=== PATIENT | male | born 1985 | race Caucasian/White ===

== ENCOUNTER 2021-06-01 08:58 | Emergency (ER) | payer BC ==
[2021-06-01] MEDS ORDERED: METHYLPREDNISOLONE 125 MG INJ ONE (09:40)
[2021-06-01] MEDS ORDERED: KETOROLAC 30 MG/ML INJ ONE (09:40)
--- NOTE | 2021-06-01 10:39 | RAD REPORT ---
EXAM DESCRIPTION: RAD - Chest Pa And Lat (2 Views) - 06/01/2021 10:10 am CLINICAL HISTORY: Chest pain;SOB COMPARISON: No comparisons FINDINGS: Lines: None. Lungs: No evidence of edema or pneumonia. Pleural: No significant pleural effusions or pneumothorax. Cardiac: The heart size is within normal limits. Bones: No acute fractures. Other: IMPRESSION: No acute cardiopulmonary disease.
--- NOTE | 2021-06-01 11:27 | EDPHYS ---
Physician Documentation [facility] Name: Og Rincon Age: 35 yrs Sex: Male : 1985 Arrival Date: 06/01/2021 Time: 09:03 Bed 14 Private MD: ED Physician Scooby Levine HPI: 06/01 09:57 This 35 yrs old Male presents to ER via Ambulatory with complaints of kdr Breathing Difficulty. 09:57 The patient or guardian reports chest pain that is located primarily in the anterior kdr chest wall, left, Patient is having pain to the left lower costal margin inferior to the nipple at the lower edge of the rib cage. The pain does not radiate. Associated signs and symptoms: Pertinent positives: shortness of breath, Pertinent negatives: headache, lower extremity pain, lower extremity swelling, lightheadedness, nausea, near syncope, palpitations. The chest pain is described as sharp, stabbing. Duration: The patient or guardian reports multiple episodes, that are intermittent, that wax and wane, Associated with coughing and movement and deep breathing. Modifying factors: The symptoms are alleviated by nothing. the symptoms are aggravated by cough, deep breath, movement. Severity of pain: At its worst the pain was moderate incapacitating. The patient has not experienced similar symptoms in the past. The patient has not recently seen a physician. Historical: - Allergies: 09:26 No Known Allergies; ss - Home Meds: 09:26 None [Active]; ss - PMHx: 09:26 None; ss - PSHx: 09:26 None; ss - Immunization history:: Client reports having NOT received the Covid vaccine. - Social history:: Smoking status: Reported history of juuling and/or vaping. ROS: 09:57 Constitutional: Negative for fever, chills, and weight loss, Eyes: Negative for injury, kdr pain, redness, and discharge, Neck: Negative for injury, pain, and swelling, Respiratory: Negative for shortness of breath, cough, wheezing, and pleuritic chest pain, Abdomen/GI: Negative for abdominal pain, nausea, vomiting, diarrhea, and constipation, Back: Negative for injury and pain, : Negative for injury, bleeding, discharge, and swelling, MS/Extremity: Negative for injury and deformity, Skin: Negative for injury, rash, and discoloration, Neuro: Negative for headache, weakness, numbness, tingling, and seizure activity. Psych: Negative for depression, anxiety, suicide ideation, homicidal ideation, and hallucinations, Allergy/Immunology: Negative for hives, rash, and allergies, Endocrine: Negative for neck swelling, polydipsia, polyuria, polyphagia, and marked weight changes, Hematologic/Lymphatic: Negative for swollen nodes, abnormal bleeding, and unusual bruising. 09:57 Cardiovascular: Positive for chest pain, with cough, with movement, of the Left lower chest as described above. Exam: 10:00 Constitutional: This is a well developed, well nourished patient who is awake, alert, kdr and in mild distress. Head/Face: Normocephalic, atraumatic. Eyes: Pupils equal round and reactive to light, extra-ocular motions intact. Lids and lashes normal. Conjunctiva and sclera are non-icteric and not injected. Cornea within normal limits. Periorbital areas with no swelling, redness, or edema. Neck: Trachea midline, no thyromegaly or masses palpated, and no cervical lymphadenopathy. Supple, full range of motion without nuchal rigidity, or vertebral point tenderness. No Meningismus. Chest/axilla: Normal chest wall appearance and motion. Nontender with no deformity. No lesions are appreciated. Cardiovascular: Regular rate and rhythm with a normal S1 and S2. No gallops, murmurs, or rubs. Normal PMI, no JVD. No pulse deficits. Respiratory: Lungs have equal breath sounds bilaterally, clear to auscultation and percussion. No rales, rhonchi or wheezes noted. No increased work of breathing, no retractions or nasal flaring. Abdomen/GI: Soft, non-tender, with normal bowel sounds. No distension or tympany. No guarding or rebound. No evidence of tenderness throughout. Back: No spinal tenderness. No costovertebral tenderness. Full range of motion. Skin: Warm, dry with normal turgor. Normal color with no rashes, no lesions, and no evidence of cellulitis. MS/ Extremity: Pulses equal, no cyanosis. Neurovascular intact. Full, normal range of motion. Neuro: Awake and alert, GCS 15, oriented to person, place, time, and situation. Cranial nerves II-XII grossly intact. Motor strength 5/5 in all extremities. Sensory grossly intact. Cerebellar exam normal. Normal gait. Psych: Awake, alert, with orientation to person, place and time. Behavior, mood, and affect are within normal limits. 10:00 Chest/axilla: Inspection: normal, Palpation: tenderness, Very minor discomfort with compression at the site of discomfort. Vital Signs: 09:21 BP 122 / 79; Pulse 70; Resp 16; Temp 97.5(O); Pulse Ox 99% on R/A; Weight 47.63 kg; ss Height 6 ft. 3 in. (190.50 cm); Pain 9/10; 10:18 BP 110 / 70; Pulse 64; Resp 15; Pulse Ox 96% ; Pain 8/10; jl7 11:20 BP 106 / 69; Pulse 59; Resp 15; Pulse Ox 98% ; jl7 09:21 Body Mass Index 13.12 (47.63 kg, 190.50 cm) ss MDM: 10:00 Data reviewed: vital signs, nurses notes, radiologic studies. Counseling: I had a kdr detailed discussion with the patient and/or guardian regarding: the historical points, exam findings, and any diagnostic results supporting the discharge/admit diagnosis, radiology results, the need for outpatient follow up. 11:27 Patient medically screened. kdr 11:28 ED course: Patient was stable in the ED. Improved with the interventions given. He was kdr happy with the care provided and the plan for discharge and follow-up. 06/01 09:41 Order name: Chest Pa And Lat (2 Views) XRAY; Complete Time: 11:26 kdr 06/01 09:41 Order name: EKG - Nurse/Tech; Complete Time: 10:19 kdr Administered Medications: 09:48 Drug: Ketorolac 15 mg Route: IVP; Site: right antecubital; jl7 10:20 Follow up: Response: No adverse reaction; Pain is decreased jl7 09:50 Drug: SOLU-Medrol (methylPrednisoLONE) 125 mg Route: IVP; Site: right antecubital; jl7 10:56 Follow up: Response: No adverse reaction jl7 Disposition Summary: 06/01/21 11:27 Discharge Ordered Location: Home kdr Problem: new kdr Symptoms: have improved kdr Condition: Stable kdr Diagnosis - Chest pain on breathing kdr - Chest pain, unspecified kdr Followup: kdr - With: Private Physician - When: 2 - 3 days - Reason: If symptoms return, Further diagnostic work-up, Recheck today's complaints, Continuance of care, Re-evaluation by your physician Discharge Instructions: - Discharge Summary Sheet kdr - Costochondritis kdr - Chest Wall Pain, [id number] kdr - Nonspecific Chest Pain, Adult, [id number] kdr Forms: - Medication Reconciliation Form kdr - Thank You Letter kdr - Prescription Opioid Use kdr Prescriptions: - Ibuprofen 800 mg Oral Tablet - take 1 tablet by ORAL route every 8 hours As needed take with food; 15 tablet; kdr Refills: 0, Product Selection Permitted - Tramadol 50 mg Oral Tablet - take 1 tablet by ORAL route every 8 hours as needed; 12 tablet; Refills: 0, kdr Product Selection Permitted - Medrol (Paddy) 4 mg Oral Tablets, Dose Pack - take 1 tablet by ORAL route as directed - follow package instructions; 1 kdr packet; Refills: 0, Product Selection Permitted Signatures: Dispatcher [employer] Scooby Scott MD MD kdr Smirch, Shelby RN RN ss Teresa Lovett RN RN jl7
--- NOTE | 2021-06-01 11:27 | ER ---
Nurse's Notes [facility] Name: Og Rincon Age: 35 yrs Sex: Male : 1985 Arrival Date: 06/01/2021 Time: 09:03 Bed 14 Private MD: Diagnosis: Chest pain on breathing;Chest pain, unspecified Presentation: 06/01 09:21 Chief complaint: Patient states: pain just under L breast that began last night, but ss became much worse this morning. Pt reports a recent cough, but it has since improved. Denies fever. Pain is worse with deep breathing. Coronavirus screen: Client denies travel out of the [place] in the last 14 days. Ebola Screen: Patient denies exposure to infectious person. Patient denies travel to an Ebola-affected area in the 21 days before illness onset. Initial Sepsis Screen: Does the patient meet any 2 criteria? No. Patient's initial sepsis screen is negative. Does the patient have a suspected source of infection? No. Patient's initial sepsis screen is negative. Risk Assessment: Do you want to hurt yourself or someone else? Patient reports no desire to harm self or others. Onset of symptoms was May 31, 2021. 09:21 Method Of Arrival: Ambulatory ss 09:21 Acuity: DEMAR 3 ss Historical: - Allergies: 09:26 No Known Allergies; ss - Home Meds: 09:26 None [Active]; ss - PMHx: 09:26 None; ss - PSHx: 09:26 None; ss - Immunization history:: Client reports having NOT received the Covid vaccine. - Social history:: Smoking status: Reported history of juuling and/or vaping. Screenin:16 Abuse screen: Denies threats or abuse. Denies injuries from another. Nutritional jl7 screening: No deficits noted. Tuberculosis screening: No symptoms or risk factors identified. Fall Risk IV access (20 points). Total Joyner Fall Scale indicates No Risk (0-24 pts). Assessment: 09:30 General: Appears in no apparent distress. uncomfortable, Behavior is calm, cooperative, jl7 appropriate for age. Pain: Complains of pain in diaphragm Pain does not radiate. Pain currently is 8 out of 10 on a pain scale. Quality of pain is described as sharp, stabbing, Pain began suddenly, Is episodic. Neuro: Level of Consciousness is awake, alert, obeys commands, Oriented to person, place, time, situation. Cardiovascular: Patient's skin is warm and dry. Rhythm is regular. Respiratory: Reports pain with respiration Airway is patent Respiratory effort is even, unlabored, Respiratory pattern is regular, symmetrical, Breath sounds are clear. Derm: Skin is pink, warm \T\ dry. Vital Signs: 09:21 BP 122 / 79; Pulse 70; Resp 16; Temp 97.5(O); Pulse Ox 99% on R/A; Weight 47.63 kg; ss Height 6 ft. 3 in. (190.50 cm); Pain 9/10; 10:18 BP 110 / 70; Pulse 64; Resp 15; Pulse Ox 96% ; Pain 8/10; jl7 11:20 BP 106 / 69; Pulse 59; Resp 15; Pulse Ox 98% ; jl7 09:21 Body Mass Index 13.12 (47.63 kg, 190.50 cm) ED Course: 09:03 Patient arrived in ED. mr 09:15 Scooby Levine MD is Attending Physician. kdr 09:22 Teresa Lvoett, ERIC is Primary Nurse. jl7 09:26 Triage completed. ss 09:26 Arm band placed on left wrist. ss 09:30 Patient has correct armband on for positive identification. Placed in gown. Bed in low jl7 position. Call light in reach. Side rails up X 1. quality assurance monitor body on. Pulse ox on. NIBP on. 09:30 EKG done, by ED staff, reviewed by Scooby Levine MD. Inserted saline lock: 20 gauge in jl7 right antecubital area, using aseptic technique. ,using aseptic technique. Inserted by Yohana Student Nurse Rope Silica Machine Operator. 10:11 Chest Pa And Lat (2 Views) XRAY In Process Unspecified. EDMS 11:42 No provider procedures requiring assistance completed. IV discontinued, intact, jl7 bleeding controlled, No redness/swelling at site. Pressure dressing applied. Administered Medications: 09:48 Drug: Ketorolac 15 mg Route: IVP; Site: right antecubital; jl7 10:20 Follow up: Response: No adverse reaction; Pain is decreased jl7 09:50 Drug: SOLU-Medrol (methylPrednisoLONE) 125 mg Route: IVP; Site: right antecubital; jl7 10:56 Follow up: Response: No adverse reaction jl7 Outcome: 11:27 Discharge ordered by . mynor 11:42 Discharged to home ambulatory. jl7 11:42 Condition: stable 11:42 Discharge instructions given to patient, Instructed on discharge instructions, follow up and referral plans. medication usage, Demonstrated understanding of instructions, follow-up care, medications, Prescriptions given X 3. 12:05 Patient left the ED. jl7 Signatures: Dispatcher [employer] EDMS Scooby Levine MD MD kdr Rivera, Mary mr Smirch, Shelby, RN RN Teresa Escamilla RN RN jl7
[2021-06-01 12:11] VITALS: TEMP 97.5
[2021-06-01 12:15] VITALS: BP 106/69; O2SAT 98
--- NOTE | 2021-06-06 08:20 | EKG ---
Test Date: 2021-06-01 Test Time: 09:42:19 Cloth Pattern Maker: GUNNAR MEASUREMENT RESULTS: Intervals: Rate: 70 NC: 176 QRSD: 126 QT: 426 QTc: 460 [place]: P: 61 NC: 176 QRS: 86 T: 73 INTERPRETIVE STATEMENTS: Normal sinus rhythm Nonspecific intraventricular block Abnormal ECG No previous ECG available for comparison Electronically Signed On 06-06-21 08:05:17 TECHNICAL SUPPORT ANALYST by He Wade
== END 2021-06-01 12:05 | disposition home or self-care (01) ==
LOC: ER 08:58
DX: R07.1 Chest pain on breathing (principal)
CPT/HCPCS: 93005; 71046; 96375; 96374; 99284; J2930

== ENCOUNTER 2021-11-27 17:03 | Emergency (ER) | payer BC ==
[2021-11-27] MEDS ORDERED: ONDANSETRON 4 MG/2 ML VIAL ONE (17:35)
[2021-11-27] MEDS ORDERED: MORPHINE 4 MG/ML SYR ONE (17:35)
[2021-11-27] MEDS ORDERED: TETANUS & DIPHTHERIA TOX,ADULT 0.5 ML VIAL ONE (17:35)
[2021-11-27 17:43] LABS: Absolute Lymphocytes (CBC) 1.2 K/uL (0.7-4.9); Lymphocytes % 12.4 % (15.3-44.8); MPV 7.4 fL (7.6-11.3); RBC Red Blood Cell Count 5.35 M/uL (4.33-5.43)
[2021-11-27] MEDS ORDERED: FENTANYL CITR 100 MCG/2 ML ONE ×2 (17:59→21:23)
[2021-11-27 18:05] LABS: Albumin 4.4 g/dL (3.4-5.0); Bilirubin Total 0.3 mg/dL (0.2-1.0); Protein, Total 7.7 g/dL (6.4-8.2)
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
[2021-11-27 21:45] VITALS: TEMP 98.8
[2021-11-27 21:47] VITALS: BP 139/81; O2SAT 97
== END 2021-11-27 21:35 | disposition short-term general hospital (02) ==
LOC: ER 17:03
DX: T20.27XA Burn of second degree of neck, initial encounter (principal); T21.24XA Burn of second degree of lower back, initial encounter; T31.11 Burns involving 10-19% of body surface with 10-19% third degree burns; W40.1XXA Explosion of explosive gases, initial encounter; Z23 Encounter for immunization
CPT/HCPCS: 85025; 36415; 80053; 90471; 90714; 99285; J3010 ×2; J2405